=== PATIENT | female | born 1960 | race African-American/Black ===

== ENCOUNTER 2019-06-19 21:44 | Emergency (ER) | payer OTHER ==
[~2019-06-19] VITALS: Ht 162.6 cm; Wt 56.7 kg
[2019-06-19 21:55] VITALS: BP 194/117
--- NOTE | 2019-06-19 21:55 | NUR ---
ED Nurse Note: walk-in patient presents in excessive pain of the left posterior back/flank area due to fall. Patient reports having a few drinks tonight and tripping and falling at home. Denies head trauma or any other injuries.
--- NOTE | 2019-06-19 22:13 | Emergency Room Report ---
History of Present Illness General Chief Complaint: Back Injury Source: Patient Present Illness HPI This is a 59-year-old female with no past medical history. She presents with chief complaint of left-sided chest pain/rib pain. She just got home from a long drive from [place]. She got out of the car and slipped and fell and hit the curb. She landed on her left side of her inferior ribs. This occurred just prior to arrival. She complained of severe pain. 10 out of 10. Worse with movement. Worse with inspiration. No loss of consciousness. No other injury. Did not hit her head. Allergies: Coded Allergies: No Known Allergies (Unverified , 06/19/19) Patient History Past Medical History: see triage record, old chart reviewed Past Surgical History: none Pertinent Family History: none Social History: Denies: smoking Now: No Immunizations: other Reviewed Nursing Documentation: PMH: Agreed; PSxH: Agreed Nursing Documentation-PMH Past Medical History: No Stated History Review of Systems Eye: Denies: eye pain, blurred vision ENT: Denies: ear pain, nose congestion, throat swelling Respiratory: Denies: cough, shortness of breath Cardiovascular: Reports: chest pain; Denies: palpitations Gastrointestinal: Denies: abdominal pain, diarrhea, nausea, vomiting Musculoskeletal: Denies: back pain, joint pain Skin: Denies: rash Neurological: Denies: headache, numbness Endocrine: Denies: increased thirst, increased urine Hematologic/Lymphatic: Denies: easy bruising All Other Systems: negative except mentioned in HPI Physical Exam Vital Signs Date Time Temp Pulse Resp B/P (MAP) Pulse Ox O2 Delivery O2 Flow Rate FiO2 06/19/19 21:55 98.2 87 18 194/117 (142) 98 Room Air Vitals with high blood pressure. Repeat blood pressure 144/92. Sp02 EP Interpretation: reviewed, normal General Appearance: well appearing, no apparent distress, alert Head: normocephalic, atraumatic Eyes: bilateral eye PERRL, bilateral eye EOMI ENT: hearing grossly normal, normal pharynx Neck: full range of motion, supple, no meningismus Respiratory: lungs clear, normal breath sounds, other - Diffuse tenderness to the inferior lateral left ribs at the mid axillary line. Cardiovascular #1: regular rate, rhythm, no murmur Gastrointestinal: normal bowel sounds, non tender, no mass, no organomegaly, no bruit, non-distended Musculoskeletal: back normal, gait/station normal, normal range of motion Psychiatric: mood/affect normal Medical Decision Making Diagnostic Impression: Primary Impression: Contusion of rib on left side Qualified Codes: S20.212A - Contusion of left front wall of thorax, initial encounter ER Course Patient with rib pain status post fall. No evidence of any fracture dislocation. No evidence of any pneumothorax, pulmonary contusion or spleen laceration. Pain is well controlled now. Will discharge home. CT/MRI/US Diagnostic Results CT/MRI/US Diagnostic Results : Imaging Test Ordered: CT chest Impression Negative per radiologist Last Vital Signs Date Time Temp Pulse Resp B/P (MAP) Pulse Ox O2 Delivery O2 Flow Rate FiO2 06/19/19 21:55 98.2 87 18 194/117 (142) 98 Room Air Status: improved Disposition: HOME, SELF-CARE Condition: Stable Scripts Ibuprofen* (MOTRIN*) 600 Mg Tablet 600 MG ORAL THREE TIMES A DAY, #30 TAB 0 Refills Prov: Narayan Hoffman MD 06/19/19 Hydrocodone/Acetaminophen 5-325* (HYDROCODONE/ACETAMINOPHEN 5-325*) 1 Each Tablet 1 TAB ORAL Q6H PRN for For Pain, #15 TAB 0 Refills Prov: Narayan Hoffman MD 06/19/19 Additional Instructions: Follow-up with your doctor in 7 days. Ice pack to the area. Return if symptoms worsen. Narayan Hoffman MD Jun 19, 2019 22:13
[2019-06-19] MEDS ORDERED: HYDROmorphone 1mg/ml Carpuject IVP ONE ×2 (22:15→23:00)
--- NOTE | 2019-06-19 22:42 | NUR ---
ED Nurse Note: Patient returned from CT. Will continue to monitor.
[2019-06-19] MEDS ORDERED: Ketorolac 30mg Inj IV ONE (23:00)
--- NOTE | 2019-06-19 23:19 | Diagnostic Imaging Report ---
Indication: Chest pain Technique: Continuous helical transaxial imaging of the chest was obtained from the thoracic inlet to the upper abdomen. No intravenous contrast was administered. Coronal 2-D reformats were also obtained. Total Dose length Product (DLP): 457.[address] Dose Index Volume (CTDIvol): 12.56 mGy Comparison: none Findings: The lungs are clear. The liver is diffusely hypodense consistent with fatty infiltration. There is a small hiatal hernia. No adenopathy is appreciated. Study is limited due to the nonadministration of IV contrast material. There is a curvilinear calcination in the gallbladder may be a gallstone. IMPRESSION: No acute disease within the chest. Fatty liver. Suspected gallstone The CT scanner at [facility] is accredited by the [employer] and the scans are performed using dose optimization techniques as appropriate to a performed exam including Automatic Exposure control.
[2019-06-19] MEDS ORDERED: HYDROCODON-ACE1 EA15 ORAL (23:23)
[2019-06-19] MEDS ORDERED: IBUPROFEN600 MG ORAL (23:23)
[2019-06-19 23:37] VITALS: BP 194/117
--- NOTE | 2019-06-19 23:37 | NUR ---
ED Nurse Note: Patient cleared for discharge by ERMD. Patient verbalized understanding of discharge instructions. IV removed, ID band removed. Patient A&Ox4, assisted with wheelchair for comfort and ease. Patient departed with all belongings accompanied by her sons, daughter and grand children.
== END 2019-06-19 23:37 | disposition home or self-care (01) ==
LOC: EMR 22:12
DX: S20.212A Contusion of left front wall of thorax, initial encounter (principal); W01.0XXA Fall on same level from slipping, tripping and stumbling without subsequent striking against object, initial encounter; Y92.810 Car as the place of occurrence of the external cause
CPT/HCPCS: 71250; 96374; 96375; 96376; 99284; J1170; J1885; J2405

== ENCOUNTER 2019-07-06 08:01 | Inpatient (IN) | payer OTHER ==
[~2019-07-06] VITALS: Ht 157.5 cm; Wt 67.8 kg
[~2019-07-06 08:01] MED LIST: HYDROCODON-ACE1 EA15 ORAL; IBUPROFEN600 MG ORAL
--- NOTE | 2019-07-06 08:30 | NUR ---
ED Nurse Note: pt arrives from home with family stating she is having pain to back L>R side and generalized body aches. relates she fell 2 weeks ago and has had pain since then. pt with difficulty moving right arm hand grasps with right weakness noted. no slurred speech pattern. pt is A/Ox4 pt does relate nausea, denies vomiting. denies dyspnea and lungs cta bilaterally. pt relates she just feels weak since fall. denies cp.
--- NOTE | 2019-07-06 08:33 | Emergency Room Report ---
History of Present Illness General Chief Complaint: Generalized Weakness Source: Patient Present Illness HPI Disclaimer: Please note that this report is being documented using DRAGON technology. This can lead to erroneous entry secondary to incorrect interpretation by the dictating instrument. HPI: 59-year-old female with no reported medical history presents for evaluation of generalized weakness and vomiting. Symptoms have been present approximately 2 days. She states that yesterday she awoke generally weak but again difficult to rise from a seated position, play with her young grandchildren and perform activities of daily living. Weakness is worse in the legs and is equal bilaterally. She feels she has weakness in the upper extremities as well and the left is somewhat greater than the right side. She denies any ataxia, headache, visual changes, dizziness, syncopal events, neck pain. She had a fall approximately 3 to 4 weeks ago causing significant back pain which is also limiting her strength in the lower extremities but she states this new weakness is different as compared to what she has been dealing with. She also notes that she has been vomiting unable to hold down any solids or liquids for the past 24 hours. She denies abdominal pain. Denies diarrhea. Notes decreased urine output. Denies changes to sensation over the upper or lower extremities. No prior history of stroke, DVT, PE or hypercoagulability. Does not take anticoagulants or aspirin. Takes no medication currently. Otherwise denies recent fevers, chills, chest pain, shortness of breath, cough, rash or other change in her health PMH: Previously hypertension and hypercholesterolemia no longer medicated PSH: Bilateral total knee replacement Allergies: Denies Social Hx: Occasional alcohol use. Denies tobacco or drug use Allergies: Coded Allergies: No Known Allergies (Unverified , 06/19/19) Patient History Now: No Nursing Documentation-PMH Past Medical History: No History, Except For Review of Systems All Other Systems: negative except mentioned in HPI Physical Exam Vital Signs Date Time Temp Pulse Resp B/P (MAP) Pulse Ox O2 Delivery O2 Flow Rate FiO2 07/06/19 08:12 97.7 81 16 158/96 (116) 100 Room Air General: Awake and alert, tearful and emotional HEENT: NC/AT. EOMI. PERRLA. Visual sams are full. No nystagmus. Facial expressions are symmetrical. No facial droop. Uvula is midline, tongue is midline Chest Wall: No tenderness, no deformity Cardiovascular: RRR. S1 and S2 normal. No murmur appreciated Resp: Normal work of breathing. No cough, wheezing or crackles appreciated Abdomen: Abdomen is soft, nondistended. Nontender Skin: Intact. No abrasions, laceration or rash over the exposed skin MSK: Normal tone and bulk. Moving all extremities. No obvious deformity. Minimal effort against gravity over the lower extremities bilaterally. There is drift in the upper extremities which is symmetrical. Neuro: Awake and alert. Mentating appropriately. Facial expression symmetrical. No dysarthria, no ataxia on [id number] or [id number] testing. Sensation to light touch is intact over the upper and lower extremities. The patient has intact speech with good repetition, comprehension. Fund of knowledge is full. No aphasia, no neglect. NIH: 6 Procedures Critical Care Time Critical Care Time Total critical care time: Approximately 45 minutes Due to a high probability of clinically significant, life threatening deterioration, the patient required the highest level of preparedness to intervene emergently and I personally spent this critical care time directly and personally managing the patient. This critical care time included obtaining a history, examining the patient, pulse oximetry, ordering and reviewing studies , ordering treatments, evaluating response to treatment and updating management plan as needed, frequent reassessment and discussion with other providers as well as arranging for ultimate disposition. This critical to care time was performed to assess and manage the high probability of life-threatening deterioration that could result in multiorgan failure. This critical care time is separate from the separately billable procedures and treating other patients. Medical Decision Making Diagnostic Impression: Primary Impression: Episode of generalized weakness Additional Impressions: Hypokalemia Abnormal liver function test ER Course 59-year-old female presents for evaluation of generalized weakness and vomiting over the past 24 hours. Differential is broad and includes but is not limited to electrolyte abnormality, malnutrition, dehydration, infection, subacute stroke, cauda equina syndrome. Will obtain a stat CT scan of the head of the patient is out of the window for any acute intervention for stroke. We will also start a broad metabolic work-up, IV hydration. She will require admission Laboratory Tests Test 07/06/19 08:20 White Blood Count 4.7 K/UL (4.8-10.8) L Red Blood Count 4.62 M/UL (4.20-5.40) Hemoglobin 14.9 G/DL (12.0-16.0) Hematocrit 42.0 % (37.0-47.0) Mean Corpuscular Volume 91 FL (80-99) Mean Corpuscular Hemoglobin 32.3 PG (27.0-31.0) H Mean Corpuscular Hemoglobin Concent 35.5 G/DL (32.0-36.0) Red Cell Distribution Width 11.3 % (11.6-14.8) L Platelet Count 294 K/UL (150-450) Mean Platelet Volume 5.6 FL (6.5-10.1) L Neutrophils (%) (Auto) 61.9 % (45.0-75.0) Lymphocytes (%) (Auto) 25.9 % (20.0-45.0) Monocytes (%) (Auto) 8.2 % (1.0-10.0) Eosinophils (%) (Auto) 2.1 % (0.0-3.0) Basophils (%) (Auto) 1.9 % (0.0-2.0) Prothrombin Time 10.1 SEC (9.30-11.50) Prothrombin Time INR 0.9 (0.9-1.1) PTT 27 SEC (23-33) Sodium Level 134 MMOL/L (136-145) L Potassium Level 3.0 MMOL/L (3.5-5.1) L Chloride Level 98 MMOL/L (98-107) Carbon Dioxide Level 27 MMOL/L (21-32) Anion Gap 9 mmol/L (5-15) Blood Urea Nitrogen 10 mg/dL (7-18) Creatinine 0.7 MG/DL (0.55-1.30) Estimate Glomerular Filtration Rate > 60 mL/min (>60) Glucose Level 94 MG/DL (74-106) Calcium Level 10.5 MG/DL (8.5-10.1) H Phosphorus Level 3.2 MG/DL (2.5-4.9) Magnesium Level 2.1 MG/DL (1.8-2.4) Total Bilirubin 1.6 MG/DL (0.2-1.0) H Direct Bilirubin 0.2 MG/DL (0.0-0.3) Aspartate Amino Transferase (AST) 104 U/L (15-37) H Alanine Aminotransferase (ALT) 116 U/L (12-78) H Alkaline Phosphatase 125 U/L (46-116) H Total Creatine Kinase 184 U/L (26-308) Creatine Kinase MB 1.4 NG/ML (0.0-3.6) Creatine Kinase MB Relative Index 0.7 Troponin I 0.000 ng/mL (0.000-0.056) Total Protein 9.2 G/DL (6.4-8.2) H Albumin 4.6 G/DL (3.4-5.0) Globulin 4.6 g/dL Albumin/Globulin Ratio 1.0 (1.0-2.7) Triglycerides Level 59 MG/DL (30-150) Cholesterol Level 318 MG/DL (< 200) H LDL Cholesterol 150 mg/dL (<100) H HDL Cholesterol 143 MG/DL (40-60) H Cholesterol/HDL Ratio 2.2 (3.3-4.4) L Lipase 94 U/L (73-393) EKG Diagnostic Results EKG Time: 08:39 Rate: normal Rhythm: NSR ST Segments: no acute changes Other Impression Sinus rhythm, normal axis, normal intervals, no ischemic changes. Rhythm Strip Diag. Results Rhythm Strip Time: 08:39 EP Interpretation: yes Rate: 70s Rhythm: NSR, no PVC's, no ectopy Reevaluation Time: 11:00 Last Vital Signs Date Time Temp Pulse Resp B/P (MAP) Pulse Ox O2 Delivery O2 Flow Rate FiO2 07/06/19 08:12 97.7 81 16 158/96 (116) 100 Room Air Reevaluation Impression Labs show normal white count, normal hemoglobin. Potassium is low at 3.0 and sodium slightly below the lower limit of normal at 134. LFTs are slightly elevated though not grossly. Troponin is negative. The patient is receiving IV and oral potassium repletion and will be admitted for weakness and electrolyte abnormalities. Chest x-ray CT the head shows no obvious intracranial bleed or mass but does show some white matter changes consistent with microvascular disease. We will obtain a MRI prior to the patient's admission to the floor. She is outside the window for any neurovascular intervention Disposition: ADMITTED INPATIENT Condition: Serious Scripts No Active Prescriptions or Reported Meds Referrals: NON PHYSICIAN (PCP) Davian Kumar MD Jul 06, 2019 08:32
[2019-07-06 08:40] VITALS: BP 173/80
--- NOTE | 2019-07-06 08:41 | NUR ---
ED Nurse Note: pt to ct scan, remains a/ox4 no dyspnea or new s/s
[2019-07-06 08:43] LABS: BASOPHILS % (AUTO) 1.9 % (0.0-2.0); EOSINOPHILS % (AUTO) 2.1 % (0.0-3.0); HEMOGLOBIN 14.9 G/DL (12.0-16.0); LYMPHOCYTES % (AUTO) 25.9 % (20.0-45.0); MEAN CORPUSCULAR VOLUME 91 FL (80-99); MONOCYTES % (AUTO) 8.2 % (1.0-10.0); NEUTROPHILS % (AUTO) 61.9 % (45.0-75.0); PLATELET COUNT 294 K/UL (150-450); RED BLOOD COUNT 4.62 M/UL (4.20-5.40); RED CELL DISTRIBUTION WIDTH 11.3 % (11.6-14.8); WHITE BLOOD COUNT 4.7 K/UL (4.8-10.8)
[2019-07-06 08:57] LABS: INR 0.9 (0.9-1.1)
--- NOTE | 2019-07-06 08:59 | NUR ---
ED Nurse Note: back from ct no changes in neuro status
[2019-07-06 09:00] LABS: ANION GAP 9 mmol/L (5-15); BLOOD UREA NITROGEN 10 mg/dL (7-18); CALCIUM 10.5 MG/DL (8.5-10.1); CARBON DIOXIDE 27 MMOL/L (21-32); CHLORIDE 98 MMOL/L (98-107); CREATININE 0.7 MG/DL (0.55-1.30); SODIUM 134 MMOL/L (136-145)
[2019-07-06 09:04] VITALS: BP 166/90
--- NOTE | 2019-07-06 09:05 | NUR ---
ED Nurse Note: daughter Marizol leaving number for mother and will return to ED shortly. [phone]
--- NOTE | 2019-07-06 09:10 | Diagnostic Imaging Report ---
Indication: Headache Technique: Contiguous 5 mm thick transaxial imaging of the head obtained in a Siemens Sensation [address] scanner. Soft tissue and bone windows generated. Automatic Exposure Control was utilized. Total Dose length Product (DLP): 1316.[address] Dose Index Volume (CTDIvol): 70.38 mGy Comparison: MRI 03/27/2008 Findings: There is mild prominence of the ventricles, basal cisterns, and cerebral sulci consistent with atrophy. Mild, nonspecific, white matter hypoattenuation is noted throughout the brain consistent with chronic small vessel disease. There is no midline shift, edema, acute hemorrhage, mass effect, or abnormal extra-axial fluid collections. Bones are unremarkable. Impression: No acute intracranial bleed, mass effect or edema. Mild atrophy of the brain. Nonspecific white matter hypoattenuation probably due to chronic small vessel disease. The CT scanner at [facility] is accredited by the [employer] and the scans are performed using dose optimization techniques as appropriate to a performed exam including Automatic Exposure control.
[2019-07-06 09:13] LABS: ALANINE AMINOTRANSFERASE 116 U/L (12-78); ALBUMIN 4.6 G/DL (3.4-5.0); ALKALINE PHOSPHATASE 125 U/L (46-116); ASPARTATE AMINO TRANSFERASE 104 U/L (15-37); BILIRUBIN,TOTAL 1.6 MG/DL (0.2-1.0); CHOLESTEROL 318 MG/DL (< 200); CKMB 1.4 NG/ML (0.0-3.6); CREATINE KINASE 184 U/L (26-308); HDL CHOLESTEROL 143 MG/DL (40-60); PHOSPHORUS 3.2 MG/DL (2.5-4.9); TRIGLYCERIDES 59 MG/DL (30-150)
--- NOTE | 2019-07-06 09:15 | NUR ---
ED Nurse Note: pt aware to obtain urine sample when able
[2019-07-06 09:20] LABS: BILIRUBIN,DIRECT 0.2 MG/DL (0.0-0.3)
[2019-07-06] MEDS ORDERED: Morphine Sulfate 2mg/ml Inj(IV/IM USE ONLY) IVP ONE (09:30)
--- NOTE | 2019-07-06 09:42 | NUR ---
ED Nurse Note: pt relates pain continues. pt meds given as noted. pt tolerating ivf well. pt made aware of plan for hospital admission and agrees. KCL infusing via pump
[2019-07-06 09:44] VITALS: BP 163/108
--- NOTE | 2019-07-06 10:18 | NUR ---
ED Nurse Note: pt prepared for admission here. does not meet criteria for swab obtainment. belongings list done, awaiting bed assignment.
[2019-07-06 10:33] VITALS: BP 169/0
--- NOTE | 2019-07-06 10:43 | NUR ---
ED Nurse Note: pt to mri
[2019-07-06] MEDS ORDERED: LORazepam Inj 2mg/ml 1ml IV ONE (11:00)
--- NOTE | 2019-07-06 11:08 | NUR ---
ED Nurse Note: pt unable to tolerate mri without meds to relax. aware and ativan given while pt in mri.
--- NOTE | 2019-07-06 11:12 | NUR ---
ED Nurse Note: pt giving urine sample, awaiting mri
[2019-07-06 11:31] LABS: APPEARANCE,URINE CLEAR; BILIRUBIN, URINE NEGATIVE (NEGATIVE); COLOR,URINE PALE YELLOW; GLUCOSE, URINE (UA) NEGATIVE (NEGATIVE); KETONES,URINE 3+ (NEGATIVE); LEUKOCYTE ESTERASE ,URINE NEGATIVE (NEGATIVE); NITRITE,URINE NEGATIVE (NEGATIVE); PH,URINE 7 (4.5-8.0); PROTEIN,URINE 1+ (NEGATIVE); UROBILINOGEN,URINE NORMAL MG/DL (0.0-1.0)
--- NOTE | 2019-07-06 11:53 | NUR ---
ED Nurse Note: returned from mri. no new s/s
--- NOTE | 2019-07-06 12:10 | NUR ---
ED Nurse Note: pt okay to go to med surg per md. pt vss for transport no new s/s
--- NOTE | 2019-07-06 12:30 | NUR ---
NURSE NOTES: Patient is transferred from ED. Report was given by ROOPA Valles. Room air. AO x4. No s/s of distress. Complain of pain on the back. IV on R AC 20g intact and patent, with saline lock. Vital sign. BP 162/92, AR 89, SpO2 97, T 98.4. Skin intact. All belongings were accounted for. Orientation on new unit was given. Called dr. Fairbanks for admission order and awaiting Dr. Cheney to put orders in. Bed in the lowest and locked. Call light within reach. Will continue to monitor
--- NOTE | 2019-07-06 12:37 | Diagnostic Imaging Report ---
Indication: Weakness and vomiting. Headache Technique: The head was imaged in a 1.5 Vania magnet. Sequences obtained include sagittal and axial T1 FLAIR, axial T2 fast spin echo with fat saturation, axial T2 FLAIR, diffusion and ADC map. Comparison: CT head earlier today Findings: The size, contour, and configuration of the sulci, ventricles, and basal cisterns appear normal. Husain-white differentiation is normal. There is no restricted diffusion to suggest acute CVA. There is no mass effect, midline shift, edema, or hemorrhage. There are no abnormal extra-axial or intra-axial fluid collections. The corpus callosum is unremarkable. The brainstem and cerebellum are unremarkable. The sella is unremarkable. Bone marrow signal within the visualized osseous structures appears age appropriate and unremarkable otherwise. Impression: Negative MRI brain without contrast.
[2019-07-06] MEDS ORDERED: Miralax 17gm pkt ORAL PRN (13:15)
--- NOTE | 2019-07-06 13:16 | History and Physical ---
History of Present Illness General Date patient seen: Jul 06, 2019 Time patient seen: 14:00 Reason for Hospitalization: Generalized Weakness Present Illness HPI 59-year-old female with no reported medical history presents for evaluation of generalized weakness and vomiting in the ER today. Her symptoms have been present approximately 2 days. She states that yesterday she awoke generally weak but again difficult to rise from a seated position, play with her young grandchildren and perform activities of daily living. Weakness is worse in the legs and is equal bilaterally. She feels she has weakness in the upper extremities as well and the left is somewhat greater than the right side. She denies any ataxia, headache, visual changes, dizziness, syncopal events, neck pain, chest pain. She had a fall approximately 2 weeks ago causing significant back pain while landing on the cement curb stepping out her car, which is also limiting her strength in the lower extremities but she states this new weakness is different as compared to what she has been dealing with. Per review of [facility] visit 06/19, she had a CT chest that was unremarkable except for possible gallstone in the gallbladder. The patient has been using ibuprofen 600 mg for pain intermittently since 06/19. She reported that she has been vomiting unable to hold down any solids or liquids for the past 24 hours. She denies abdominal pain. Denies diarrhea. Notes decreased urine output. Denies changes to sensation over the upper or lower extremities. No prior history of stroke, DVT, PE or hypercoagulability. Does not take anticoagulants or aspirin. Takes no medication currently. In the ER Initial work up shows hypertension in the 160 SBP range, hypokalemia with level of 3, LDL 150. CT head with mild atrophy and MRI brain was unremarkable. Admission is requested. The patient denies any new motor or sensory deficit at this time. She denies any urinary or stool incontinence. 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 Last 24 Hour Vital Signs Date Time Temp Pulse Resp B/P (MAP) Pulse Ox O2 Delivery O2 Flow Rate FiO2 07/06/19 12:08 82 15 157/101 99 Room Air 07/06/19 10:33 80 14 169/0 99 Room Air 07/06/19 10:04 97.7 07/06/19 09:44 79 18 163/108 99 Room Air 07/06/19 09:04 76 18 166/90 99 Room Air 07/06/19 08:52 81 16 Room Air 07/06/19 08:40 74 18 173/80 99 Room Air 07/06/19 08:12 97.7 81 16 158/96 (116) 100 Room Air Laboratory Tests Test 07/06/19 08:20 07/06/19 11:10 White Blood Count 4.7 K/UL (4.8-10.8) L Red Blood Count 4.62 M/UL (4.20-5.40) Hemoglobin 14.9 G/DL (12.0-16.0) Hematocrit 42.0 % (37.0-47.0) Mean Corpuscular Volume 91 FL (80-99) Mean Corpuscular Hemoglobin 32.3 PG (27.0-31.0) H Mean Corpuscular Hemoglobin Concent 35.5 G/DL (32.0-36.0) Red Cell Distribution Width 11.3 % (11.6-14.8) L Platelet Count 294 K/UL (150-450) Mean Platelet Volume 5.6 FL (6.5-10.1) L Neutrophils (%) (Auto) 61.9 % (45.0-75.0) Lymphocytes (%) (Auto) 25.9 % (20.0-45.0) Monocytes (%) (Auto) 8.2 % (1.0-10.0) Eosinophils (%) (Auto) 2.1 % (0.0-3.0) Basophils (%) (Auto) 1.9 % (0.0-2.0) Prothrombin Time 10.1 SEC (9.30-11.50) Prothromb Time International Ratio 0.9 (0.9-1.1) Activated Partial Thromboplast Time 27 SEC (23-33) Sodium Level 134 MMOL/L (136-145) L Potassium Level 3.0 MMOL/L (3.5-5.1) L Chloride Level 98 MMOL/L (98-107) Carbon Dioxide Level 27 MMOL/L (21-32) Anion Gap 9 mmol/L (5-15) Blood Urea Nitrogen 10 mg/dL (7-18) Creatinine 0.7 MG/DL (0.55-1.30) Estimat Glomerular Filtration Rate > 60 mL/min (>60) Glucose Level 94 MG/DL (74-106) Calcium Level 10.5 MG/DL (8.5-10.1) H Phosphorus Level 3.2 MG/DL (2.5-4.9) Magnesium Level 2.1 MG/DL (1.8-2.4) Total Bilirubin 1.6 MG/DL (0.2-1.0) H Direct Bilirubin 0.2 MG/DL (0.0-0.3) Aspartate Amino Transf (AST/SGOT) 104 U/L (15-37) H Alanine Aminotransferase (ALT/SGPT) 116 U/L (12-78) H Alkaline Phosphatase 125 U/L (46-116) H Total Creatine Kinase 184 U/L (26-308) Creatine Kinase MB 1.4 NG/ML (0.0-3.6) Creatine Kinase MB Relative Index 0.7 Troponin I 0.000 ng/mL (0.000-0.056) Total Protein 9.2 G/DL (6.4-8.2) H Albumin 4.6 G/DL (3.4-5.0) Globulin 4.6 g/dL Albumin/Globulin Ratio 1.0 (1.0-2.7) Triglycerides Level 59 MG/DL (30-150) Cholesterol Level 318 MG/DL (< 200) H LDL Cholesterol 150 mg/dL (<100) H HDL Cholesterol 143 MG/DL (40-60) H Cholesterol/HDL Ratio 2.2 (3.3-4.4) L Lipase 94 U/L (73-393) Urine Color Pale yellow Urine Appearance Clear Urine pH 7 (4.5-8.0) Urine Specific [place] 1.010 (1.005-1.035) Urine Protein 1+ (NEGATIVE) H Urine Glucose (UA) Negative (NEGATIVE) Urine Ketones 3+ (NEGATIVE) H Urine Blood Negative (NEGATIVE) Urine Nitrite Negative (NEGATIVE) Urine Bilirubin Negative (NEGATIVE) Urine Urobilinogen Normal MG/DL (0.0-1.0) Urine Leukocyte Esterase Negative (NEGATIVE) Urine RBC 0-2 /HPF (0 - 2) Urine WBC 0-2 /HPF (0 - 2) Urine Squamous Epithelial Cells Occasional /LPF Urine Bacteria Occasional /HPF (NONE) Height (Feet): 5 Height (Inches): 2.00 Weight (Pounds): 150 Assessment/Plan Status: stable Assessment/Plan: 59 y/o female with new onset generalized weakness and lower back pain. # Low back pain Recent trauma s/p fall onto cement curbside 06/19/[address] chest at that time and possibly rib contusion. Tenderness in the midline spine L3-S2 area noted Lidocaine patch trial [place] 5/325 mg PRN MRI L/S to rule out underlying injury Neurology consult Dr. Bear # Generalized weakness Head CT and MRI brain reviewed without acute ischemia Suspect electrolyte abnormality is part of the etiology PT evaluation TSH # Hypokalemia Likely due to emesis ? Gastritis induced due to NSAID use in the last 2 weeks Replete K Monitor BMP in AM IVF # Hypertension Resume medication and monitor for need or PRN therapy Cardiac diet Education # FULL CODE # DVT and GI ppx Sachin Cheney MD Jul 06, 2019 13:16
[2019-07-06] MEDS: Enoxaparin 40mg Inj SUBQ SCH (14:43)
[2019-07-06] MEDS: NS w/KCl 20mEq 1000ml 1,000 ML IV SCH (14:44)
[2019-07-06] MEDS ORDERED: NS w/KCl 20mEq 1000ml 1,000 ML IV SCH (15:00)
[2019-07-06] MEDS ORDERED: LORazepam Inj 2mg/ml 1ml IV PRN (15:30)
[2019-07-06] MEDS ORDERED: LORazepam 20 MG in NS 90 ML IV SCH (15:30)
[2019-07-06] MEDS ORDERED: HYDROcodone/Acetamin 5/325 tab ORAL PRN (15:30)
[2019-07-06 16:00] VITALS: BP 155/72
[2019-07-06] MEDS: Morphine Sulfate 2mg/ml Inj(IV/IM USE ONLY) IVP PRN (18:02)
--- NOTE | 2019-07-06 18:08 | Consultation ---
Consult Note Consult Note NEUROLOGY CONSULTATION: Full note dictated #[id number] 59-year-old, right-handed, black lady, who does have a past history of borderline diabetes mellitus. She was functioning relatively well until 06/19/2019 when she apparently walked into a ditch and fell backwards. She came to the [facility] emergency room and was evaluated and sent home. She then started to have pain and discomfort in her back as a result of which she started to use some ibuprofen. She is unable to tell me how much exactly she was taking. Then 2 days prior to admission she started to have nausea and vomiting. This was followed by generalized weakness on 07/05/2019 as a result of which she presented to the [facility] emergency room on 2018 and has since been admitted. At this time she feels significantly better than when she came in. ON EXAMINATION: Oriented except for exact date Was able to remember 3 words immediately after 1 minute and after 3 minutes on the second trial Able to remember presidents Trump and Obama only Math impaired Visual-spatial function preserved Speech normal Language normal Cranial nerves II through XII intact Motor G 5/5 Sensory intact to pinprick light touch and graphesthesia Coordination: [id number] and [id number] normal Sway on Romberg test Reflexes: 1+ and bilaterally symmetrical at the biceps triceps brachioradialis and knees 0 at both ankles plantar responses flexor Stance normal Gait normal IMPRESSION: Generalized weakness most probably due to dehydration and electrolyte imbalances No focal neurological deficits CT of brain and MRI of brain normal Recommendations: We will review MRI of lumbosacral spine that was just completed Work-up for treatable causes of generalized weakness with vitamin B12 level folate level vitamin D level ESR RPR glycohemoglobin CK aldolase. Correct dehydration and electrolyte imbalances Observe closely Walter Bear M.D., M.S.P.H. Walter Bear MD Jul 06, 2019 18:08
--- NOTE | 2019-07-06 19:30 | NUR ---
NURSE NOTES: Received report from ROOPA Bettencourt. Patient a/a/o and able to ambulate with minimal staff assist and observation in steady gait. Breathing unlabored without distress discomfort or sob. Denies pain at this time. IV on right antecubital noted intact currently saline locked. Bed placed at the lowest with brakes and padded siderails for safety. Call light placed within reach and encouraged to use. Will continue to monitor and provide care as ordered.
--- NOTE | 2019-07-06 19:30 | NUR ---
HAND-OFF: Report given to ROOPA Tompkins.
[2019-07-06 19:55] LABS: CREATINE KINASE 152 U/L (26-308)
[2019-07-06 20:00] VITALS: BP 164/101
--- NOTE | 2019-07-06 21:45 | NUR ---
NURSE NOTES: Reached Dr. Ruffin to notify that patient's blood pressures are elevated SBP being greater than 160. Patient's first take was 164/101, second 166/103, and third was 158/101. New order was given to given hydralazine 25 mg Q 6 hrs PRN for SBP > 160. Rechecked the blood pressure at 2230 and was 164/101 again. Gave one dose of hydralazine as prescribed. Rechecked the blood pressure after 30 minutes and reading was 155/94. Will continue to monitor and provide care as ordered. No apparent visual distress is observed and patient verbalized that she is stable. MD made aware of high blood pressure reading.
[2019-07-06] MEDS: HydrALAZINE 25mg tab ORAL PRN (22:38)
--- NOTE | 2019-07-06 23:45 | Consultation ---
DATE OF CONSULTATION: 07/06/2019 NEUROLOGY CONSULTATION CONSULTING PHYSICIAN: Walter Bear M.D. REQUESTING PHYSICIAN: Axel Peralta M.D. HISTORY: Ms. Tati Salinas is a 59-year-old, right-handed, black lady, who does have a past history of borderline diabetes mellitus. She was functioning relatively well until 06/19/2019 when she was apparently walking and fell into a ditch. When she fell, she fell backwards. She immediately came to the [facility] emergency room where she was evaluated and no significant injuries were discovered and she was sent home. A few days later, she started to have pain and discomfort in her low back. As a result of that, she started to use some ibuprofen. She is unable to tell me how much of ibuprofen she was taking. Two days prior to admission, she started to have nausea and vomiting. She also then noticed generalized weakness on 07/05/2019 and as a result of that she presented to the [facility] emergency room on 07/06/2019 and has since been admitted. She feels significantly better than when she came in, but she still feels generally weak. She denies any problems with speech, language, vision, numbness, weakness on one side or the other, or other neurological symptoms. PAST MEDICAL HISTORY: Significant for borderline diabetes mellitus. FAMILY HISTORY: Significant for her mother having diabetes mellitus. PERSONAL HISTORY: Home: She lives with family. 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 Habits: She denies the use of tobacco or illicit drugs, but does consume approximately 2 alcoholic drinks in a week. PRESENT MEDICATIONS: Include pantoprazole, Lidoderm patch, lorazepam, morphine sulfate, [place], Lovenox, Tylenol, MiraLAX, and Zofran p.r.n. PHYSICAL EXAMINATION: GENERAL: She is a well-developed, well-nourished, pleasant black lady sitting up in a chair, in no acute distress. VITAL SIGNS: Pulse 90/minute, blood pressure 155/72 mmHg, respirations 18/minute, and temperature 98.6 degrees Fahrenheit. HEAD: Normocephalic and atraumatic. EENT: Examination benign. NECK: No neck rigidity was observed. SPINE: Cervical, thoracic, and lumbosacral spine revealed mild tenderness and paraspinal muscle spasm involving the lumbosacral spine. NEUROLOGIC EXAMINATION: MENTAL STATUS EXAMINATION: She was awake and alert. She was oriented to person, place, and time except for the exact date. She was able to recall 3/3 words immediately after 1 minute and after 3 minutes on the second trial. She was able to remember Presidents, Trump and Obama, but could not remember presidents prior to that. Her mathematical skills were significantly impaired. Her visuospatial function was relatively good. SPEECH: She had no dysarthria. LANGUAGE: She had no aphasia. CRANIAL NERVE EXAMINATION: II: The visual sams were intact on confrontation testing. III, IV & : The external ocular movements were full and the pupils 3 mm in diameter, equal, round, regular, and reactive to light. V: She had normal facial sensations, and the temporales, masseters, and pterygoids functioned normally. VII: She had normal facial expressions and no facial asymmetry. VIII: She was able to hear well bilaterally and had no nystagmus. IX: The palate moved symmetrically on phonation. X: She had no hoarseness of voice. XI: The sternocleidomastoids and trapezii functioned normally. XII: The tongue was in the midline without any fasciculations or atrophy. MOTOR SYSTEM: The tone was normal in all four extremities. Examination of muscle mass revealed no focal wasting. Examination of power revealed G 5/5 power in all muscle groups tested. SENSORY EXAMINATION: She had intact sensations to pinprick, light touch, and graphesthesia. COORDINATION: She performed well on wnawwi-di-[id number] and fsev-dc-vxau testing. On Romberg test, she swayed, but did not fall to one side or the other. REFLEXES: 1+ and bilaterally symmetrical at the biceps, triceps, brachioradialis, knees, 0 at both ankles. The plantar responses were flexor bilaterally. STANCE: She had a normal stance. GAIT: She had a normal gait. DIAGNOSTIC IMPRESSION: 1. Ms. Tati Salinas is a 59-year-old, right-handed, black lady, who does have a past history of borderline diabetes mellitus who fell in a ditch approximately 7 days ago and then started to have some low back pain for which she was taking ibuprofen. About 2 days prior to admission, she started to have nausea and vomiting and was unable to keep any food or water down. This was followed by generalized weakness on 07/05/2019 as a result of which, she presented to the [facility] Emergency Room and has since been admitted. At this point in time, she feels better. 2. On neurological examination, at this time, she is disoriented to the exact date. She has mild problems with recent and remote memory, and has significant problems with higher cognitive function. She has globally diminished deep tendon reflexes with loss of ankle jerks, sways on Romberg test, and has mild lumbosacral paraspinal muscle spasm. 3. An MRI scan of the brain is normal. 4. The CT scan of the brain is normal. 5. Laboratory data obtained thus far have revealed a relatively normal CBC. A chemistry panel with low sodium at 134, low potassium at 3.0, calcium minimally elevated at 10.5, total bilirubin elevated at 1.6, AST elevated at 104, AST elevated to 116, alkaline phosphatase elevated at 125, and a total cholesterol of 318 with an LDL of 150 and an HDL of 143. The urine analysis is relatively benign. 6. The patient's history, neurological examination, laboratory data, and imaging studies are most consistent with generalized weakness, most probably related to dehydration and electrolyte imbalances. The patient also has some hepatic dysfunction, which should be investigated. RECOMMENDATIONS: 1. Agree with management thus far. 2. The patient just came back from an MRI scan of the lumbosacral spine the images of which are unavailable to me at this point in time, I shall review them when they become available. 3. The patient should be worked up thoroughly for other treatable causes of generalized weakness with a B12 level, folate level, vitamin D level, ESR, RPR, glycohemoglobin, CK, aldolase, and in addition, further workup for hepatic dysfunction. 4. The patient's dehydration and electrolyte imbalances should be corrected. 5. The patient will be observed closely and depending on how she fares over the next day or so, further recommendations will be given. Thank you for entrusting me with the care of Ms. Salinas. I shall follow her with you. Walter Bear M.D., M.S.P.H. DR: MATTY JOB#: [id number] MTDD
[2019-07-07] VITALS: BP 118/75
[2019-07-07 04:00] VITALS: BP 151/89
[2019-07-07] MEDS: NS w/KCl 20mEq 1000ml 1,000 ML IV SCH ×2 (04:16→18:09)
--- NOTE | 2019-07-07 06:54 | NUR ---
CASE MANAGEMENT: INITIAL REVIEW 59 YO F PRESENTED TO ED FROM HOME CC: GEN WEAKNESS PMHx: HTN. HLD. SI:WEAKNESS. HYPOKALEMIA. T 97.7 HR 81 RR 16 B/P 158/96 SATS 100% ON RA WBC 4.7 ESR 63 NA 134 K 3 CA 10.5 TBILI 1.6 AST 104 ALT 116 ALP 125 VITAMIN B12 1011 RPR SEROLOGY PENDING IS: NS BOLUS X1 KCL IVPB X1 KDUR PO X1 MORPHINE IV X1 PATIENT ADMITTED TO MED/SURG 07/06/2019 @ 0955 DCP: PATIENT TO BE DISCHARGED TO HOME ONCE MEDICALLY CLEARED. PLAN OF CARE: MRI SPINE 07/07/2019 SI:WEAKNESS. HYPOKALEMIA. T 98.2 HR 71 RR 18 B/P 151/89 SATS 99% ON RA AM LABS PENDING RPR SEROLOGY PENDING IS: PROTONIX PO QD KCL IV @ 75 mL/HR LOVENOX SUBQ Q24H HEAD CT (-) MRI BRAIN (-) MED/SURG STATUS DCP: PATIENT TO BE DISCHARGED TO HOME ONCE MEDICALLY CLEARED. PLAN OF CARE: MRI SPINE PT EVAL Addendum: 07/07/19 at 0922 by Jovita Duran CM INTERJOHN OROZCO
[2019-07-07 07:12] LABS: BASOPHILS % (AUTO) 2.3 % (0.0-2.0); EOSINOPHILS % (AUTO) 2.6 % (0.0-3.0); HEMATOCRIT 41.5 % (37.0-47.0); HEMOGLOBIN 14.2 G/DL (12.0-16.0); LYMPHOCYTES % (AUTO) 29.4 % (20.0-45.0); MEAN CORPUSCULAR VOLUME 93 FL (80-99); MONOCYTES % (AUTO) 8.8 % (1.0-10.0); NEUTROPHILS % (AUTO) 56.9 % (45.0-75.0); PLATELET COUNT 268 K/UL (150-450); RED BLOOD COUNT 4.44 M/UL (4.20-5.40); RED CELL DISTRIBUTION WIDTH 12.4 % (11.6-14.8); WHITE BLOOD COUNT 4.4 K/UL (4.8-10.8)
[2019-07-07 07:30] LABS: ANION GAP 10 mmol/L (5-15); BLOOD UREA NITROGEN 8 mg/dL (7-18); CALCIUM 9.9 MG/DL (8.5-10.1); CARBON DIOXIDE 26 MMOL/L (21-32); CHLORIDE 103 MMOL/L (98-107); CREATININE 0.7 MG/DL (0.55-1.30); POTASSIUM 3.6 MMOL/L (3.5-5.1); SODIUM 139 MMOL/L (136-145)
--- NOTE | 2019-07-07 07:35 | NUR ---
NURSE NOTES: received report from ROOPA Tompkins. patient in bed. sleeping. no respiratory distress noted.n IV on RAC 20 runningns with kcl 20meq @75/hr. bed in the lowest position . call light within reach. will provide plan of care.
--- NOTE | 2019-07-07 07:38 | NUR ---
HAND-OFF: Report given to ROOPA Saleem.
[2019-07-07 08:00] VITALS: BP 161/98
[2019-07-07] MEDS: Morphine Sulfate 2mg/ml Inj(IV/IM USE ONLY) IVP PRN ×3 (08:14→22:33)
[2019-07-07] MEDS: HydrALAZINE 25mg tab ORAL PRN (08:48)
--- NOTE | 2019-07-07 08:50 | NUR ---
NURSE NOTES: patient BP was 161/99. given hydralizine 25mg tab po prn q6hrs. will continue to monitor the effectiveness of medication and patient condition.
--- NOTE | 2019-07-07 09:04 | NUR ---
*-* NO INSURANCE INFORMATION IN THE BAR UNABLE TO SEND CLINICALS OR REVIEWS *-*
--- NOTE | 2019-07-07 09:41 | Diagnostic Imaging Report ---
Indication: Weakness in bilateral legs, status post fall 2 weeks ago, lower back pain Technique: Coronal, sagittal, and axial T1 fast spin-echo and STIR, sagittal T2 FRFSE images obtained of the sacrum Comparison: none Findings: Normal marrow signal. Unremarkable sacroiliac joints. No evidence of acute fracture. No evidence of sacral canal stenosis. There is disc degeneration at the L5-S1 disc with only minimal circumferential annular bulge demonstrated Included extraspinal soft tissues demonstrate a 3.4 cm lesion within the uterus. This is hypointense on the T2 and STIR images, isointense on the T1-weighted images and is consistent with a fibroid. There is a small amount of free fluid within the pelvis. Impression: No acute bony trauma Free pelvic fluid. Of uncertain significance but not physiologic in a postmenopausal female Uterine fibroid This agrees with the preliminary interpretation provided overnight by Dr. Jeronimo
--- NOTE | 2019-07-07 09:48 | Diagnostic Imaging Report ---
Indication: Trauma, pain, status post fall 2 weeks ago with low back pain, bilateral leg weakness Technique: Sagittal T1 and T2 fast spin echo, sagittal STIR, axial T1 and T2 fast spin-echo images of the lumbar spine Comparison: none Findings: Vertebral marrow signal is normal. There is very slight anterior offset of L4 on L5. Bony alignment is otherwise normal. Vertebral body heights are preserved. The conus medullaris terminates somewhat low, at the L2-3 disc. No filum terminale or cauda equina abnormality demonstrated. At L3-4, there is mild circumferential annular bulge. This results in borderline narrowing of the spinal canal but no significant clumping of the nerve roots. The neural foramina are preserved. There is bilateral facet arthrosis. The disc space is preserved. At L4-5, there is minimal circumferential annular bulge which, in combination with the alignment abnormality, results in borderline narrowing of the spinal canal. Facet arthrosis and hypertrophy results in borderline narrowing of the spinal canal in the transverse plane. The disc space is preserved. There is mild narrowing of the bilateral neural foramina. At L5-S1, there is mild degenerative narrowing of the disc. There is circumferential annular bulge which does not significantly compromise the spinal canal. The neural foramina are mildly narrowed by the bulging disc. Incidentally noted but incompletely demonstrated is a uterine fibroid, demonstrated more completely on a sacral MRI performed at the same time. There also appears to be a smaller subcentimeter uterine fundal fibroid located immediately adjacent Impression: No acute bony trauma Mild degenerative changes, as described This agrees with the preliminary interpretation provided overnight by Dr. Jeronimo
--- NOTE | 2019-07-07 10:00 | NUR ---
NURSE NOTES: BP 146/80 after hydralazine 25mg tab po prn
--- NOTE | 2019-07-07 10:15 | NUR ---
PT EVALUATION NOTE Patient seen for initial evaluation, see complete evaluation for details. Patient presents with generalized weakness and low back pain which affects patient's ability to perform mobility tasks. Patient able to transfer without physical assistance and is able to ambulate 40 ft with the use of a FWW for improved gait stability. Patient will benefit from skilled inpatient PT intervention to address balance, strength and functional mobility. Anticipate discharge home once medically cleared by MD. Would benefit from PT follow up post discharge and may benefit from use of FWW for ambulation depending on patient's progress. Addendum: 07/07/19 at 1306 by NIKKO FAGAN PT Amended: Links added.
[2019-07-07 12:00] VITALS: BP 148/85
[2019-07-07] MEDS: HYDROcodone/Acetamin 5/325 tab ORAL SCH ×2 (13:19→18:09)
[2019-07-07] MEDS: Enoxaparin 40mg Inj SUBQ SCH (14:48)
--- NOTE | 2019-07-07 15:37 | General Progress Note ---
Assessment/Plan Status: stable Assessment/Plan: 59 y/o female with new onset generalized weakness and lower back pain. # Low back pain Recent trauma s/p fall onto cement curbside 06/19/[address] chest at that time and possibly rib contusion. Tenderness in the midline spine L3-S2 area noted Lidocaine patch trial [place] 5/325 mg to scheduled twice a day ordered MRI L/S noted to have mild annular disc bulge L3-L4 Neurology consult Dr. Bear reviewed and appreciated. PT evaluation noted and she needs skilled inpatient therapy - PENDING decision for FWW and discharge when mobile enough and pain better controlled. # Generalized weakness Head CT and MRI brain reviewed without acute ischemia Suspect electrolyte abnormality is part of the etiology PT evaluation noted TSH # Hypokalemia Likely due to emesis ? Gastritis induced due to NSAID use in the last 2 weeks Improved. IVF # Hypertension Resume medication and monitor for need or PRN therapy Cardiac diet Education # FULL CODE # DVT and GI ppx Subjective Date patient seen: Jul 07, 2019 Time patient seen: 09:30 ROS Limited/Unobtainable: No Constitutional: Reports: no symptoms Cardiovascular: Reports: no symptoms Respiratory: Reports: no symptoms Gastrointestinal/Abdominal: Reports: no symptoms Allergies: Coded Allergies: No Known Allergies (Unverified , 06/19/19) All Systems: reviewed and negative except above Subjective Reports to still be having low back pain and mild relief with morphine is only partially helping with the pain. Objective Last 24 Hour Vital Signs Date Time Temp Pulse Resp B/P (MAP) Pulse Ox O2 Delivery O2 Flow Rate FiO2 07/07/19 13:49 98.7 07/07/19 12:00 98.7 75 18 148/85 (106) 99 07/07/19 08:48 161/98 07/07/19 08:00 98.6 75 18 161/98 (119) 99 07/07/19 04:00 98.2 71 18 151/89 (109) 99 07/07/19 00:00 97.9 81 18 118/75 (89) 99 07/06/19 22:38 164/101 07/06/19 20:00 98.1 80 20 164/101 (122) 99 07/06/19 16:00 98.6 90 18 155/72 (99) 97 Intake and Output 07/06/19 07/07/19 19:00 07:00 Intake Total 2200 ml 225 ml Balance 2200 ml 225 ml Intake Oral 0 ml IV Total 2200 ml 225 ml # Voids 1 Laboratory Tests 07/06/19 19:05: Erythrocyte Sedimentation Rate 63H, Hemoglobin A1c 5.2, Total Creatine Kinase 152, Aldolase [Pending], Vitamin B12 Level 1011H, Vitamin D 25-Hydroxy [Pending] , 25-Hydroxy Vitamin D2 [Pending], 25-Hydroxy Vitamin D3 [Pending], Folate 6.7L , Rapid Plasma Reagin [Pending] 07/07/19 06:09: White Blood Count 4.4L, Red Blood Count 4.44, Hemoglobin 14.2, Hematocrit 41.5, Mean Corpuscular Volume 93, Mean Corpuscular Hemoglobin 32.0H, Mean Corpuscular Hemoglobin Concent 34.3, Red Cell Distribution Width 12.4, Platelet Count 268, Mean Platelet Volume 5.6L, Neutrophils (%) (Auto) 56.9, Lymphocytes (%) (Auto) 29.4, Monocytes (%) (Auto) 8.8, Eosinophils (%) (Auto) 2.6, Basophils (%) (Auto ) 2.3H, Sodium Level 139, Potassium Level 3.6, Chloride Level 103, Carbon Dioxide Level 26, Anion Gap 10, Blood Urea Nitrogen 8, Creatinine 0.7, Estimat Glomerular Filtration Rate > 60, Glucose Level 88, Calcium Level 9.9, Thyroid Stimulating Hormone (TSH) 2.398 Height (Feet): 5 Height (Inches): 2.00 Weight (Pounds): 149 General Appearance: WD/WN EENT: PERRL/EOMI Neck: non-tender Cardiovascular: normal peripheral pulses Respiratory/Chest: chest wall non-tender, lungs clear Extremities: normal range of motion 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
[2019-07-07 16:00] VITALS: BP 155/108
--- NOTE | 2019-07-07 19:26 | NUR ---
HAND-OFF: Report given to ROOPA Ascencio.
--- NOTE | 2019-07-07 19:38 | NUR ---
NURSE NOTES: Patient in bed, awake, alert and verbally responsive. Able to make needs known. No complaint of pain or discomfort noted. Abdomen is soft and non distended. Skin is warm and dry to touch, intact. Call light is at bedside. IV site noted. Will continue plan of care.
--- NOTE | 2019-07-07 19:45 | Neurology Progress Note ---
Interim History Interim History Interim History Ms. Salinas feels significantly better today. She feels that her strength has improved markedly. The mind is clear. She did some walking earlier today and was steady on her feet. Her appetite is still quite poor. She denies any new neurological symptoms. Review of Systems Neuro Review of Systems Benign. Objective Physical Exam Last Vital Signs Date Time Temp Pulse Resp B/P (MAP) Pulse Ox O2 Delivery O2 Flow Rate FiO2 07/07/19 16:00 98.2 82 18 155/108 (124) 97 07/06/19 13:20 Room Air Laboratory Tests Test 07/07/19 06:09 White Blood Count 4.4 K/UL (4.8-10.8) L Red Blood Count 4.44 M/UL (4.20-5.40) Hemoglobin 14.2 G/DL (12.0-16.0) Hematocrit 41.5 % (37.0-47.0) Mean Corpuscular Volume 93 FL (80-99) Mean Corpuscular Hemoglobin 32.0 PG (27.0-31.0) H Mean Corpuscular Hemoglobin Concent 34.3 G/DL (32.0-36.0) Red Cell Distribution Width 12.4 % (11.6-14.8) Platelet Count 268 K/UL (150-450) Mean Platelet Volume 5.6 FL (6.5-10.1) L Neutrophils (%) (Auto) 56.9 % (45.0-75.0) Lymphocytes (%) (Auto) 29.4 % (20.0-45.0) Monocytes (%) (Auto) 8.8 % (1.0-10.0) Eosinophils (%) (Auto) 2.6 % (0.0-3.0) Basophils (%) (Auto) 2.3 % (0.0-2.0) H Sodium Level 139 MMOL/L (136-145) Potassium Level 3.6 MMOL/L (3.5-5.1) Chloride Level 103 MMOL/L (98-107) Carbon Dioxide Level 26 MMOL/L (21-32) Anion Gap 10 mmol/L (5-15) Blood Urea Nitrogen 8 mg/dL (7-18) Creatinine 0.7 MG/DL (0.55-1.30) Estimat Glomerular Filtration Rate > 60 mL/min (>60) Glucose Level 88 MG/DL (74-106) Calcium Level 9.9 MG/DL (8.5-10.1) Thyroid Stimulating Hormone (TSH) 2.398 uiU/mL (0.358-3.740) Neurologic Exam Objective PHYSICAL EXAMINATION: GENERAL: She is a well-developed, well-nourished, pleasant black lady sitting up in a chair, in no acute distress. HEAD: Normocephalic and atraumatic. EENT: Examination benign. NECK: No neck rigidity was observed. SPINE: Cervical, thoracic, and lumbosacral spine revealed mild tenderness and paraspinal muscle spasm involving the lumbosacral spine. NEUROLOGIC EXAMINATION: MENTAL STATUS EXAMINATION: She was awake and alert. She was oriented to person, place, and time. She was able to recall 3/3 words immediately after 1 minute and after 3 minutes on the second trial. She was able to remember Presidents, Trump and Obama, but could not remember presidents prior to that. Her mathematical skills were significantly impaired. Her visuospatial function was relatively good. SPEECH: She had no dysarthria. LANGUAGE: She had no aphasia. CRANIAL NERVE EXAMINATION: II: The visual sams were intact on confrontation testing. III, IV & : The external ocular movements were full and the pupils 3 mm in diameter, equal, round, regular, and reactive to light. V: She had normal facial sensations, and the temporales, masseters, and pterygoids functioned normally. VII: She had normal facial expressions and no facial asymmetry. VIII: She was able to hear well bilaterally and had no nystagmus. IX: The palate moved symmetrically on phonation. X: She had no hoarseness of voice. XI: The sternocleidomastoids and trapezii functioned normally. XII: The tongue was in the midline without any fasciculations or atrophy. MOTOR SYSTEM: The tone was normal in all four extremities. Examination of muscle mass revealed no focal wasting. Examination of power revealed G 5/5 power in all muscle groups tested. SENSORY EXAMINATION: She had intact sensations to pinprick, light touch, and graphesthesia. COORDINATION: She performed well on [id number] and [id number]-qt-[id number] testing. On Romberg test, she swayed, but did not fall to one side or the other. REFLEXES: 1+ and bilaterally symmetrical at the biceps, triceps, brachioradialis, knees, 0 at both ankles. The plantar responses were flexor bilaterally. STANCE: She had a normal stance. GAIT: She had a normal gait. Impression/Recommendations Diagnostic Impression 1. Ms. Tati Salinas is a 59-year-old, right-handed, black lady, who does have a past history of borderline diabetes mellitus who fell in a ditch approximately a week ago and then started to have some low back pain for which she was taking ibuprofen. About 2 days prior to admission, she started to have nausea and vomiting and was unable to keep any food or water down. This was followed by generalized weakness on 07/05/2019 as a result of which, she presented to the [facility] Emergency Room and has since been admitted. 2. She feels significantly better today. She feels that her strength has improved markedly. The mind is clear. She did some walking earlier today and was steady on her feet. Her appetite is still quite poor. She denies any new neurological symptoms. 3. On neurological examination, at this time, she is fully oriented. She has mild problems with recent and remote memory, and has significant problems with higher cognitive function. She has globally diminished deep tendon reflexes with loss of ankle jerks, sways on Romberg test, and has mild lumbosacral paraspinal muscle spasm. 4. An MRI scan of the brain is normal. 5. The CT scan of the brain is normal. 6. MRI of the lumbosacral spine and coccyx is also normal. 7. Laboratory data obtained on my initial evaluation revealed a relatively normal CBC. A chemistry panel with low sodium at 134, low potassium at 3.0, calcium minimally elevated at 10.5, total bilirubin elevated at 1.6, AST elevated at 104, AST elevated to 116, alkaline phosphatase elevated at 125, and a total cholesterol of 318 with an LDL of 150 and an HDL of 143. The urine analysis is relatively benign. 8. Further laboratory tests have revealed a normal B12 level, low folic acid level, normal TSH, and minimally elevated ESR. 9. The patient's history, neurological examination, laboratory data, and imaging studies are most consistent with generalized weakness, most probably related to dehydration and electrolyte imbalances. The patient also has some hepatic dysfunction, which should be investigated. 10. She has improved significantly with correction of electrolyte imbalances and rehydration. Recommendations 1. Continue present management. 2. Folic acid 1 mg p.o. daily. 3. Continue to correct dehydration and electrolyte imbalances . 4. Observe closely. Walter Bear M.D., M.S.P.H. Walter Bear MD Jul 07, 2019 19:45
[2019-07-07 20:00] VITALS: BP 153/101
[2019-07-08] VITALS: BP 135/74
[2019-07-08 04:00] VITALS: BP 151/93
[2019-07-08] MEDS: NS w/KCl 20mEq 1000ml 1,000 ML IV SCH (05:51)
[2019-07-08 06:19] LABS: ANION GAP 12 mmol/L (5-15); BLOOD UREA NITROGEN 10 mg/dL (7-18); CALCIUM 9.8 MG/DL (8.5-10.1); CARBON DIOXIDE 25 MMOL/L (21-32); CHLORIDE 105 MMOL/L (98-107); CREATININE 0.6 MG/DL (0.55-1.30); POTASSIUM 3.7 MMOL/L (3.5-5.1); SODIUM 141 MMOL/L (136-145)
--- NOTE | 2019-07-08 07:08 | NUR ---
HAND-OFF: Report given to ROOPA Saleem.
--- NOTE | 2019-07-08 07:49 | NUR ---
NURSE NOTES: received report from ROOPA Ascencio. patient in bed. alert. oriented. verbally responsive. no respiratory distress noted on room air. pain on left lower back. PT on scheduled. IV on RAC 20g running ns/kcl 20meq @ 75/hr. ambulatory. bed in the lowest position. call light within reach. will continue to provide plan of care.
[2019-07-08 08:00] VITALS: BP 144/92
[2019-07-08] MEDS: HYDROcodone/Acetamin 5/325 tab ORAL SCH ×2 (08:53→12:36)
[2019-07-08] MEDS: Morphine Sulfate 2mg/ml Inj(IV/IM USE ONLY) IVP PRN (08:58)
--- NOTE | 2019-07-08 09:00 | NUR ---
NURSE NOTES: patient refused to take schedule [place] 5/325mg po for pain. patient said the medication makes her feel not comfortable and itchy. held morning dosage. given morphine 2mg IV. pain scale 7/10.
[2019-07-08 12:00] VITALS: BP 171/98
--- NOTE | 2019-07-08 12:00 | NUR ---
NURSE NOTES: patient BP 171/98. offered hydralizen 25mg po prn for HTN. patient refused to take at this time. patient said BP might high cause pain on lower back or exercise. RN explained risks and benefits. no c/o headache at this time. Rn will continue to monitor.
[2019-07-08] MEDS ORDERED: PERCOCET 5-3251 EACH ORAL (12:35)
[2019-07-08] MEDS ORDERED: BENAZEPRIL HCL40 MG ORAL ×2 (12:35)
[2019-07-08] MEDS ORDERED: NORVASC5 MG ORAL ×2 (12:35)
--- NOTE | 2019-07-08 12:36 | Discharge Instructions ---
Discharge Instructions Discharge Instructions Diet: 2 GM sodium (low sodium) Resume Normal Activity?: Yes Activity: resume normal activities, as tolerated Follow Up Orders PCP appointment next Thursday Return to Work/School on: Jul 08, 2019 For Surgical Patients May shower: Yes Contact your physician for: other - increased low back pain and if sbp > 160 mmHg For Congestive Heart Failure Reminder Report to your physician any weight gain of 5 pounds or more in one week. Sachin Cheney MD Jul 08, 2019 12:36
--- NOTE | 2019-07-08 12:36 | NUR ---
NURSE NOTES: patient refused to take schedule [place] 5/325 tab po for pain. RN explained risks and benefits. notified Dr. Cheney. aware.
--- NOTE | 2019-07-08 12:40 | Discharge Summary ---
Discharge Summary Hospital Course Date of Admission Jul 06, 2019 at 09:55 Date of Discharge Jul 082018 Admitting Diagnosis weakness/hypokalemia HPI Tati West is a 59 year old female who was admitted on Jul 06, 2019 at 09:55 for Weakness/Hypokalemia Consultations neurology Procedures none Hospital Course 59 y/o female with new onset generalized weakness and lower back pain. # Low back pain Recent trauma s/p fall onto cement curbside 06/19/[address] chest at that time and possibly rib contusion. Tenderness in the midline spine L3-S2 area noted Lidocaine patch trial MRI L/S noted to have mild annular disc bulge L3-L4, no acute bony trauma, mild degenerative changes Neurology consult Dr. Bear reviewed and appreciated. PT evaluation noted and is able to ambulate safely without FWW. # Generalized weakness Head CT and MRI brain reviewed without acute ischemia Suspect electrolyte abnormality is part of the etiology PT evaluation noted TSH normal # Hypokalemia Likely due to emesis ? Gastritis induced due to NSAID use in the last 2 weeks Improved. # Hypertension Resume medication and monitor for need or PRN therapy Cardiac diet Education Rx for Amlodipine and Benazepril given F/u with PCP next week # FULL CODE # DVT and GI ppx Discharge Medications New Medications: Amlodipine Besylate (Norvasc) 5 Mg Tablet 5 MG ORAL DAILY, #30 TAB Benazepril Hcl* (Benazepril Hcl*) 40 Mg Tablet 40 MG ORAL DAILY, #30 TAB Oxycodone/Acetaminophen 5-325* (Percocet 5-325 Mg Tablet*) 1 Each Tablet 1 TAB ORAL Q6H PRN, #40 TAB Discharge Condition Upon Discharge: improving Discharge Disposition Patient was discharged to HOME Discharge Diagnoses: (1) Hypertension (2) Hypokalemia (3) Episode of generalized weakness Discharge Instructions Discharge Instructions Activity: resume normal activities, as tolerated May Return to Work/School On: Jul 08, 2019 For Surgical Patients May shower: Yes Contact your physician for: other - increased low back pain and if sbp > 160 mmHg Sachin Cheney MD Jul 08, 2019 12:40
[2019-07-08] MEDS ORDERED: AMLODIPINE-BEN1 EAC4 ORAL (12:48)
--- NOTE | 2019-07-08 12:54 | Neurology Progress Note ---
Interim History Interim History Interim History Ms. Salinas feels very well. She feels that she is close to her normal self. She feels that her strength is back to normal. The mind is clear. She did some walking earlier and was steady on her feet. Her appetite is better. She denies any new neurological symptoms. Review of Systems Neuro Review of Systems Benign. Objective Physical Exam Last Vital Signs Date Time Temp Pulse Resp B/P (MAP) Pulse Ox O2 Delivery O2 Flow Rate FiO2 07/08/19 08:00 98.4 77 18 144/92 (109) 96 07/06/19 13:20 Room Air Laboratory Tests Test 07/08/19 05:40 Sodium Level 141 MMOL/L (136-145) Potassium Level 3.7 MMOL/L (3.5-5.1) Chloride Level 105 MMOL/L (98-107) Carbon Dioxide Level 25 MMOL/L (21-32) Anion Gap 12 mmol/L (5-15) Blood Urea Nitrogen 10 mg/dL (7-18) Creatinine 0.6 MG/DL (0.55-1.30) Estimat Glomerular Filtration Rate > 60 mL/min (>60) Glucose Level 95 MG/DL (74-106) Calcium Level 9.8 MG/DL (8.5-10.1) Magnesium Level 1.9 MG/DL (1.8-2.4) Neurologic Exam Objective PHYSICAL EXAMINATION: GENERAL: She is a well-developed, well-nourished, pleasant black lady sitting up at the edge of her bed, in no acute distress. HEAD: Normocephalic and atraumatic. EENT: Examination benign. NECK: No neck rigidity was observed. SPINE: Cervical, thoracic, and lumbosacral spine revealed mild tenderness and paraspinal muscle spasm involving the lumbosacral spine. NEUROLOGIC EXAMINATION: MENTAL STATUS EXAMINATION: She was awake and alert. She was oriented to person, place, and time. She was able to recall 3/3 words immediately after 1 minute and after 3 minutes on the second trial. She was able to remember Presidents, Trump and Obama, but could not remember presidents prior to that. Her mathematical skills were significantly impaired. Her visuospatial function was relatively good. SPEECH: She had no dysarthria. LANGUAGE: She had no aphasia. CRANIAL NERVE EXAMINATION: II: The visual sams were intact on confrontation testing. III, IV & : The external ocular movements were full and the pupils 3 mm in diameter, equal, round, regular, and reactive to light. V: She had normal facial sensations, and the temporales, masseters, and pterygoids functioned normally. VII: She had normal facial expressions and no facial asymmetry. VIII: She was able to hear well bilaterally and had no nystagmus. IX: The palate moved symmetrically on phonation. X: She had no hoarseness of voice. XI: The sternocleidomastoids and trapezii functioned normally. XII: The tongue was in the midline without any fasciculations or atrophy. MOTOR SYSTEM: The tone was normal in all four extremities. Examination of muscle mass revealed no focal wasting. Examination of power revealed G 5/5 power in all muscle groups tested. SENSORY EXAMINATION: She had intact sensations to pinprick, light touch, and graphesthesia. COORDINATION: She performed well on [id number]-rr-[id number] and udve-sz-[id number] testing. On Romberg test, she swayed, but did not fall to one side or the other. REFLEXES: 1+ and bilaterally symmetrical at the biceps, triceps, brachioradialis, knees, 0 at both ankles. The plantar responses were flexor bilaterally. STANCE: She had a normal stance. GAIT: She had a normal gait. Impression/Recommendations Diagnostic Impression 1. Ms. Tati Salinas is a 59-year-old, right-handed, black lady, who does have a past history of borderline diabetes mellitus who fell in a ditch approximately a week ago and then started to have some low back pain for which she was taking ibuprofen. About 2 days prior to admission, she started to have nausea and vomiting and was unable to keep any food or water down. This was followed by generalized weakness on 07/05/2019 as a result of which, she presented to the [facility] Emergency Room and has since been admitted. 2. She feels very well. She feels that she is close to her normal self. She feels that her strength is back to normal. The mind is clear. She did some walking earlier and was steady on her feet. Her appetite is better. She denies any new neurological symptoms. 3. On neurological examination, at this time, she is fully oriented. She has mild problems with recent and remote memory, and has significant problems with higher cognitive function. She has globally diminished deep tendon reflexes with loss of ankle jerks, sways on Romberg test, and has mild lumbosacral paraspinal muscle spasm. 4. An MRI scan of the brain is normal. 5. The CT scan of the brain is normal. 6. MRI of the lumbosacral spine and coccyx is also normal. 7. Laboratory data obtained on my initial evaluation revealed a relatively normal CBC. A chemistry panel with low sodium at 134, low potassium at 3.0, calcium minimally elevated at 10.5, total bilirubin elevated at 1.6, AST elevated at 104, AST elevated to 116, alkaline phosphatase elevated at 125, and a total cholesterol of 318 with an LDL of 150 and an HDL of 143. The urine analysis is relatively benign. 8. Further laboratory tests have revealed a normal B12 level, low folic acid level, normal TSH, and minimally elevated ESR. 9. The patient's history, neurological examination, laboratory data, and imaging studies are most consistent with generalized weakness, most probably related to dehydration and electrolyte imbalances. The patient also has some hepatic dysfunction. 10. She has improved significantly with correction of electrolyte imbalances and rehydration. She feels she is back to her normal self. Recommendations 1. Continue present management. 2. Folic acid 1 mg p.o. daily. 3. Keep well hydrated. 4. Agree with D/C home. Walter Bear M.D., M.S.P.H. Walter Bear MD Jul 08, 2019 12:54
--- NOTE | 2019-07-08 15:06 | NUR ---
NURSE NOTES: patient discharged to home with stable condition accompanied by son. alert. oriented. verbally responsive. no respiratory distress noted. pain on lower back. pharmacy delivered Amlodipne for HTN. patient and son will package pick up Percocet and lidoderm patch from the pharmacy after discharge. checked and counted belongings with patient and obtained sign. provided dc packet and educated patient. IV and ID band removed.
--- NOTE | 2019-07-08 15:40 | NUR ---
*-* INSURANCE *-* ALL CLINICALS AND REVIEWS HAVE BEEN FAXED TO: [employer] PLEASE FAX ALL CLINICALS TO FAX# [phone]
[2019-07-08] MEDS ORDERED: NS w/KCl 20mEq 1000ml 1,000 ML IV SCH (19:00)
== END 2019-07-08 15:12 | disposition home or self-care (01) | DRG 641 ==
LOC: EMR 08:16 → 4E 09:55 → EDBEDREQ 10:55 → 4E 07-07 04:10
DX: E87.6 Hypokalemia (principal); R53.1 Weakness; K29.70 Gastritis, unspecified, without bleeding; T39.395A Adverse effect of other nonsteroidal anti-inflammatory drugs [NSAID], initial encounter; R11.2 Nausea with vomiting, unspecified; M54.5 Low back pain; Z96.653 Presence of artificial knee joint, bilateral; I10 Essential (primary) hypertension; Z91.81 History of falling; E86.0 Dehydration
CPT/HCPCS: 36415; 70450; 70551; 72148; 72195; 80048; 80053; 80061; 81003; 82085; 82248; 82306; 82550; 82553; 82607; 82746; 82962; 83036; 83690; 83735; 84100; 84443; 84484; 85025; 85610; 85651; 85730; 86592; 93005; 96365; 96375; 99291; J8499